=== PATIENT | male | born 1960 | race Two or more races ===

== ENCOUNTER 2019-06-09 00:36 | Emergency (ER) | payer MEDICAID ==
[~2019-06-09] VITALS: Ht 172.7 cm; Wt 75.0 kg
[2019-06-09] MEDS ORDERED: SODIUM CHLORIDE 0.9% 1,000 ML IV ONE (01:13)
[2019-06-09 01:49] LABS: BASOPHILS % 0.4 % (0.0-2.0); HEMATOCRIT. 44.5 % (42.0-52.0); HEMOGLOBIN. 15.1 g/dL (14.0-18.0); LYMPHOCYTES % 9.6 % (20.0-50.0); MEAN CORPUSCULAR HEMOGLOBIN 32.1 pg (28.0-32.0); MEAN CORPUSCULAR VOLUME 94.6 fL (80.0-94.0); MEAN PLATELET VOLUME 7.7 fl (7.4-10.4); MONOCYTES % 7.6 % (2.0-8.0); NEUTROPHILS % 80.4 % (40.0-76.0); PLATELET 293 x1000/uL (130-400); RED BLOOD CELL COUNT 4.71 mill/uL (4.7-6.1); RED CELL DISTRIBUTION WIDTH 14.2 % (11.6-14.6)
[2019-06-09 01:55] LABS: CHLORIDE 109 mEq/L (98-107)
[2019-06-09] MEDS ORDERED: IOHEXOL-300 100 ML BOTTLE ONE (04:29)
[2019-06-09] MEDS ORDERED: ACETAMINOPHEN 325MG TABLET PO ONE (22:30)
[2019-06-10 09:42] VITALS: BP 122/68
== END 2019-06-10 09:43 | disposition home or self-care (01) ==
LOC: ER 00:36
DX: S30.1XXA Contusion of abdominal wall, initial encounter (principal); S46.811A Strain of other muscles, fascia and tendons at shoulder and upper arm level, right arm, initial encounter; S40.021A Contusion of right upper arm, initial encounter; E05.90 Thyrotoxicosis, unspecified without thyrotoxic crisis or storm; Z59.0 Homelessness; Y04.0XXA Assault by unarmed brawl or fight, initial encounter; Y93.89 Activity, other specified; Y92.488 Other paved roadways as the place of occurrence of the external cause
CPT/HCPCS: 36415; 70450; 71045; 73060; 73080; 73090; 73130; 74177; 80048; 85025; 99285; J7030; Q9967